=== PATIENT | female | born 1975 | race Two or more races ===

== ENCOUNTER 2025-05-26 12:02 | Inpatient (IN) | payer MEDICAID ==
[~2025-05-26] VITALS: Ht 167.6 cm; Wt 90.0 kg
--- NOTE | 2025-05-26 12:50 | ED.PDOC ---
History of Present Illness HPI Comments 50-year-old female who is Green[place]ic-speaking presents to the ER with daughter who translates and a prior medical history of diabetes, hypertension, thyroid disease, PE x2021, high lipids, DVT on the left leg: Surgical history of C- section, Achilles surgery and the chief complaint of chest pain. Problem caleb harper reports that she went to his doctor makes us too weak for a lab work due from her having constant chest pain and they called today telling her to go to the ER due from having her troponin elevated. Patient states she had substernal chest pain, which radiated of the upper back to the neck burp, breathing worsens the pain all happening for the past 3 days. Patient notes on having a little bit of pain right now. Denies chills, fever, N/V/D. No other associated symptoms, modifiers, recent injuries or sick contacts present at this time. Chief Complaint: Chest Pain Time Seen by MD: 12:30 Reviewed Notes: Nurses Notes, Medications, Allergies Allergies: Coded Allergies: NO KNOWN ALLERGIES (Unverified , 05/26/25) Information Source: Patient Severity: Moderate Timing: Days Duration: Since onset, Days Prehospital treatment: None Past Medical History PAST MEDICAL HISTORY: DM, High Lipids, HTN, PE (2020), Thyroid Past Medical History (Other): DVT on the left leg Surgical History: Surgical History (Other): Achilles surgery INTELLIGENCE APPLICATIONS History: No Pertinent INTELLIGENCE APPLICATIONS History Family History Family History: Reviewed,noncontributory to illness, Unknown Social History Smoker: Non-Smoker Alcohol: Denies ETOH Use Drugs: Denies Drug Use Lives In: Home Constitutional: denies: chills, diaphoresis, fatigue, fever, malaise, sweats, weakness, others EENTM: denies: blurred vision, double vision, ear bleeding, ear discharge, ear drainage, ear pain, ear ringing, eye pain, eye redness, hearing loss, mouth pain, mouth swelling, nasal discharge, nose bleeding, nose congestion, nose pain, photophobia, tearing, throat pain, throat swelling, voice changes, others Respiratory: reports: shortness of breath; denies: cough, hemoptysis, orthopnea, SOB at rest, SOB with excertion, stridor, wheezing, others Cardiovascular: reports: chest pain; denies: dizzy spells, diaphoresis, Dyspnea on exertion, edema, irregular heart beat, left arm pain, lightheadedness, palpitations, PND, syncope, others Gastrointestinal: denies: abdomen distended, abdominal pain, blood streaked bowels, constipated, diarrhea, dysphagia, difficulty swallowing, hematemesis, melena, nausea, poor appetite, poor fluid intake, rectal bleeding, rectal pain, vomiting, others Genitourinary: denies: abnormal vagina bleeding, burning, dyspareunia, dysuria, flank pain, frequency, hematuria, incontinence, pain, , vagina discharge, urgency, others Neurological: denies: dizziness, fainting, headache, left sided numbness, left sided weakness, numbness, paresthesia, pre-existing deficit, right sided numbness, right sided weakness, seizure, speech problems, tingling, tremors, weakness, others Musculoskeletal: reports: back pain; denies: gout, joint pain, joint swelling, muscle pain, muscle stiffness, neck pain, others Integumetry: denies: bruises, change in color, change in hair/nails, dryness, laceration, lesions, lumps, rash, wounds, others Allergic/Immunocompromised: denies: Difficulty Healing, Frequent Infections, Hives, Itching, others Hematologic/Lymphatic: denies: anemia, blood clots, easy bleeding, easy bruising, swollen glands, others Endocrine: denies: excessive hunger, excessive sweating, excessive thirst, excessive urination, flushing, intolerance to cold, intolerance to heat, unexplained weight gain, unexplained weight loss, others Psychiatric: denies: anxiety, bipolar disorder, depression, hopeless, panic disorder, schizophrenia, sleepless, suicidal, others All Other Systems: Reviewed and Negative Physical Exam Exam Comments No pitting edema, calf nontender General Appearance: No Apparent Distress, Normal HEENT: Normal ENT Inspection, Pharynx Normal, TMs Normal Neck: Full Range of Motion, Non-Tender, Normal, Normal Inspection Respiratory: Chest Non-Tender, Lungs Clear, No Accessory Muscle Use, No Respiratory Distress, Normal Breath Sounds Cardiovascular: No Edema, No JVD, No Murmur, No Gallop, Normal Peripheral Pulses, Regular Rate/Rhythm Breast Exam: Deferred Gastrointestinal: No Organomegaly, Non Tender, No Pulsatile Mass, Normal Bowel Sounds, Soft Genitalia: Deferred Pelvic: Deferred Rectal: Deferred Extremities: No calf tenderness, Normal capillary refill, Normal inspection, Normal range of motion, Non-tender, No pedal edema Musculoskeletal : Apperance: Normal Neurologic: Alert, division field inspector II-XII nml as Tested, No Motor Deficits, Normal Affect, Normal Mood, No Sensory Deficits Cerebellar Function: Normal Reflexes: Normal Skin: Dry, Normal Color, Warm Lymphatic: No Adenopathy Was a procedure done? Was a procedure done?: No EKG EKG : Pulse Rate (adult): 81 Basco: Normal Cardiac Rhythm: NSR Block: None Hypertrophy: None ST: Normal Differential Dx Considerations may include: acs, pe, ptx, pneumonia, lung mass, GERD, aortic dissection X-Ray, Labs, Meds, VS Vital Signs Date Time Temp Pulse Resp B/P (MAP) Pulse Ox O2 Delivery O2 Flow Rate FiO2 05/26/25 13:25 78 05/26/25 12:50 81 05/26/25 12:49 81 05/26/25 12:49 98.4 81 16 116/65 (82) 98 98.4 05/26/25 12:13 81 05/26/25 12:06 98.3 81 16 133/57 (82) 98 98.3 Lab Test 05/26/25 13:20 05/26/25 12:28 05/26/25 12:17 Range/Units Troponin I High Sensitivity 3 L < 3 L </=34 ng/L White Blood Count 6.5 4.4-10.8 10^3/uL Red Blood Count 3.82 L 4.0-5.20 10^6/uL Hemoglobin 11.2 L 12.2-16.2 g/dL Hematocrit 33.4 L 36.0-46.0 % Mean Corpuscular Volume 87.6 80.0-100.0 fL Mean Corpuscular Hemoglobin 29.3 28.0-32.0 pg Mean Corpuscular Hemoglobin Concent 33.4 32.0-36.0 g/dL Red Cell Distribution Width 13.6 11.8-14.3 % Platelet Count 208 140-450 10^3/uL Mean Platelet Volume 9.6 6.9-10.8 fL Neutrophils (%) (Auto) 54.1 37.0-80.0 % Lymphocytes (%) (Auto) 38.4 10.0-50.0 % Monocytes (%) (Auto) 4.3 0.0-12.0 % Eosinophils (%) (Auto) 2.8 0.0-7.0 % Basophils (%) (Auto) 0.4 0.0-2.0 % Neutrophils # (Auto) 3.5 1.6-8.6 10 ^3/uL Lymphocytes # (Auto) 2.5 0.4-5.4 10 ^3/uL Monocytes # (Auto) 0.3 0-1.3 10 ^3/uL Eosinophils # (Auto) 0.2 0-0.8 10 ^3/uL Basophils # (Auto) 0 0-0.2 10 ^3/uL Nucleated Red Blood Cells 0.1 % D-Dimer, Quantitative 0.36 0.0-0.49 mg/L FEU Sodium Level 141 136-145 mmol/L Potassium Level 5.7 *H 3.5-5.1 mmol/L Chloride Level 110 H 98-107 mmol/L Carbon Dioxide Level 26 20-31 mmol/L Anion Gap 5 5-15 Blood Urea Nitrogen 28 H 9-23 mg/dL Creatinine 1.17 H 0.550-1.02 mg/dL Glomerular Filtration Rate Calc 57 >90 mL/min BUN/Creatinine Ratio 23.9 H 10.0-20.0 Serum Glucose 128 H 74-106 mg/dL Calcium Level 9.7 8.7-10.4 mg/dL POC Glucose 124 H 70-106 mg/dl Current Medications Medications (Trade) Dose Ordered Sig/Chau Route Start Time Stop Time Status Last Admin Aspirin 162 mg ONCE ONCE PO 05/26/25 12:30 05/26/25 12:31 DC 05/26/25 13:11 Time of 1ST Reevaluation: 13:00 Reevaluation 1ST: Unchanged Patient Education/Counseling: Diagnosis, Treatment, Prognosis Family Education/Counseling: Diagnosis, Treatment, Prognosis SEPSIS Sepsis Screen Physician Orders Chest Portable (05/26/25 12:21) Electrocardigram (05/26/25 12:21) Electrocardigram (05/26/25 13:21) Electrocardigram (05/26/25 15:21) Sodium Zirconium Cyclosilicate (Lokelma) (05/26/25 15:45) Vital Signs Date Time Temp Pulse Resp B/P (MAP) Pulse Ox O2 Delivery O2 Flow Rate FiO2 05/26/25 13:25 78 05/26/25 12:50 81 05/26/25 12:49 81 05/26/25 12:49 98.4 81 16 116/65 (82) 98 98.4 05/26/25 12:13 81 05/26/25 12:06 98.3 81 16 133/57 (82) 98 98.3 Laboratory Tests Test 05/26/25 12:28 White Blood Count 6.5 10^3/uL (4.4-10.8) Medications Medications Dose Ordered Sig/Chau Route Start Time Stop Time Status Last Admin Dose Admin Aspirin 162 mg ONCE ONCE PO 05/26/25 12:30 05/26/25 12:31 DC 05/26/25 13:11 Departure 1 Departure Time of Disposition: 15:39 Impression: Primary Impression: Unstable angina Disposition: ADMITTED INPATIENT Admit to: Tele Condition: Serious Discharged With: Self Critical Care Note Critical Care Time?: Yes (45 min-critical care time only) Critical care comment: Due to concerns for patients condition deteriorating, the care required my highest level of attention and readiness to intervene. I assessed the patient, reviewed the medical records, ordered the appropriate tests and treatments, then reassessed for results and responsiveness. I communicated with medical personnel and consultants and formulated a plan of care. Total critical care time excludes any procedures Stability Stability form required: No Heart Score Heart Score: Heart Score Response (Comments) Value History Highly Suspicious 2 EKG Repolarization Disturb 1 Age 45-64 1 Risk Factors >3 or Hx ASHD 2 Troponin Normal limit 0 Total 6 I personally scribed for JU LINDSEY MD ([email or web address]) on 05/26/25 at 12:50. Electronically submitted by Navdeep Mac ([email or web address]). JU LINDSEY MD May 26, 2025 12:50
[2025-05-26 12:54] LABS: Hematocrit 33.4 % (36.0-46.0); Hemoglobin 11.2 g/dL (12.2-16.2); Mean Corpuscular Hemoglobin 29.3 pg (28.0-32.0); Mean Corpuscular Volume 87.6 fL (80.0-100.0); Nucleated Red Blood Cells % 0.1 %
[2025-05-26 13:00] LABS: Sodium 141 mmol/L (136-145)
[2025-05-26 13:01] LABS: Anion Gap 5 (5-15); Calcium 9.7 mg/dL (8.7-10.4); Carbon Dioxide 26 mmol/L (20-31)
[2025-05-26 13:06] LABS: BUN/Creatinine Ratio 23.9 (10.0-20.0)
[2025-05-26 13:11] LABS: Blood Urea Nitrogen 28 mg/dL (9-23); Chloride 110 mmol/L (98-107); Glucose 128 mg/dL (74-106)
--- NOTE | 2025-05-26 13:12 | DVH ---
CHEST RADIOGRAPH Indication: cp Technique: XY CHEST PORTABLE Comparison: None FINDINGS: The cardiac silhouette is unremarkable. The lungs demonstrate no pulmonary airspace consolidation. Th e pulmonary vasculature is prominent. There is no pleural effusion.. There is no pneumothorax. IMPRESSION: Pulmonary vasculature congestion.
[2025-05-26 13:13] LABS: Potassium 5.7 mmol/L (3.5-5.1)
[2025-05-26 16:01] VITALS: PULSE 87; RESP 16; O2SAT 100
[2025-05-26] MEDS: SODIUM ZIRCONIUM CYCL 10 GM PAK PO ONE (16:24)
--- NOTE | 2025-05-26 18:35 | ECG ---
[facility] Test Date: 2025-05-26 Test Time: 13:25:43 Pat Name: TOMY DRAKE Department: er Room: [address] [place] [address] Gender: F Unit Manager: scott : 1975 Requested By: JU LINDSEY Order Number: [id number] Reading MD: Chandler Olivares Measurements Intervals [place] Rate: 78 P: 14 [place]: 144 QRS: 39 QRSD: 99 T: 62 QT: 369 QTc: 421 Interpretive Statements Sinus rhythm Baseline wander in lead(s) V6 Electronically Signed On 05-26-2025 19:38:10 PDT by Chandler Olivares Please click the below link to view image of tracing.
--- NOTE | 2025-05-26 18:35 | ECG ---
[facility] Test Date: 2025-05-26 Test Time: 12:13:01 Pat Name: TOMY DRAKE Department: er Room: [address] [place] [address] Gender: F Records And Information Manager: jahaira : 1975 Requested By: JU LINDSEY Order Number: [id number] Reading MD: Chandler Olivares Measurements Intervals [place] Rate: 81 P: 6 [place]: 147 QRS: 23 QRSD: 99 T: 66 QT: 365 QTc: 424 Interpretive Statements Sinus rhythm Electronically Signed On 05-26-2025 19:37:29 PDT by Chandler Olivares Please click the below link to view image of tracing.
[2025-05-26] MEDS ORDERED: NITROGLYCERIN 0.4 MG SL TAB SL PRN (18:45)
[2025-05-26] MEDS ORDERED: MORPHINE SULFATE INJ 2 MG/ml SYRG IV PRN (18:45)
[2025-05-26] MEDS ORDERED: ONDANSETRON HCL 4 MG/2 ML VIAL IV PRN (18:45)
[2025-05-26] MEDS ORDERED: DEXTROSE (50%) 50ML SYRG IV PRN (18:45)
[2025-05-26] MEDS ORDERED: TEMAZEPAM 15 MG CAP PO PRN (18:45)
[2025-05-26 20:37] VITALS: BP 154/75; PULSE 86; RESP 15; O2SAT 99
[2025-05-26] MEDS: ACCU-CHEK COMFORT CURVE STRIP VI SCH (22:07)
[2025-05-26] MEDS: InsuLIN REG 1unit/0.01ml Soln (100units/ml) SC SCH (22:11)
[2025-05-26] MEDS: ATORVASTATIN 20 MG TAB PO SCH (22:16)
[2025-05-26 22:37] VITALS: BP 154/75; PULSE 86; RESP 16; TEMP 97.6; O2SAT 99
[2025-05-27] VITALS (8 sets, daily range): BP systolic 118–157; BP diastolic 58–90; PULSE 74–83; RESP 16–20; TEMP 97.6–98.7; O2SAT 97–100
--- NOTE | 2025-05-27 04:09 | DVHHP2 ---
History of Present Illness Reason for Visit: Chest pain History of Present Illness 50-year-old female presents for evaluation of chest pain. Patient presents with complaints of a three day history of substernal sharp chest pain that radiates to her back with associated shortness for breath. She was also notified by her primary care provider to present due to her potassium level being elevated. Denies palpitations. No GI or symptoms. Past Medical History Hypertension, PE, thyroid, dyslipidemia, diabetes mellitus, DVT Past Surgical History Family History Noncontributory Smoke: No ALCOHOL: none Drugs: None Lives: with Family Review of Systems Review of Systems Review of systems are currently negative otherwise addressed in HPI. Allergies: Coded Allergies: NO KNOWN ALLERGIES (Unverified , 05/26/25) Medications Current Medications Medications Dose Ordered Sig/Chau Route Start Time Stop Time Status Last Admin Dose Admin Lisinopril 40 mg DAILY PO 05/27/25 10:00 Aspirin 81 mg DAILY PO 05/27/25 10:00 Empaglifozin 25 mg DAILY PO 05/27/25 10:00 Atorvastatin Calcium 40 mg HS PO 05/26/25 22:00 05/26/25 22:16 40 MG Levothyroxine Sodium 88 mcg QAM@0600 PO 05/27/25 06:00 Gabapentin 300 mg DAILY PO 05/27/25 10:00 Diagnostic Test (Pha) 1 strip ACHS 05/26/25 22:00 05/26/25 22:07 1 STRIP Insulin Human Regular ACHS SC 05/26/25 22:00 05/26/25 22:11 2 UNITS Dextrose 50 ml UD PRN IV 05/26/25 18:45 Temazepam 15 mg QHSP PRN PO 05/26/25 18:45 Ondansetron HCl 4 mg Q4HP PRN IV 05/26/25 18:45 Acetaminophen 650 mg Q6HP PRN PO 05/26/25 18:45 Nitroglycerin 0.4 mg Q5MINP PRN SL 05/26/25 18:45 Morphine Sulfate 2 mg Q30M PRN IV 05/26/25 18:45 Exam Vital Signs Vital Signs Date Time Temp Pulse Resp B/P (MAP) Pulse Ox O2 Delivery O2 Flow Rate FiO2 05/27/25 00:00 Room Air* 0 21 05/27/25 00:00 97.6 79 20 127/58 (81) 98 97.6 Exam Gen: 50-year-old female in mild distress Skin: Warm, dry, normal color and texture, no rash. HEENT: Normocephalic atraumatic, mucous membranes moist and pink. Neck: Cervical and supraclavicular nodes normal without enlargement, trachea is midline, thyroid gland is normal without masses. Pulmonary: Clear to auscultation and percussion bilaterally. Cardiac: Regular rate and rhythm. No murmur Abdomen: Soft, nontender, nondistended, bowel sounds present all 4 quadrants, no guarding, no rigidity, no organomegaly. Extremities: No cyanosis, clubbing, no edema Neuro: Cranial nerves II through XII grossly intact, normal affect and speech, no focal motor deficits. Labs/Xrays ORDERING PHYSICIAN: JU LINDSEY MD PROCEDURE(s): CXRP - CHEST PORTABLE REASON: cp ORDER NUMBER(s): [id number], ACCESSION NUMBER(s): [id number] CHEST RADIOGRAPH Indication: cp Technique: XY CHEST PORTABLE Comparison: None FINDINGS: The cardiac silhouette is unremarkable. The lungs demonstrate no pulmonary airspace consolidation. The pulmonary vasculature is prominent. There is no pleural effusion.. There is no pneumothorax. IMPRESSION: Pulmonary vasculature congestion. Labs Test 05/26/25 22:06 05/26/25 13:20 05/26/25 12:28 Range/Units POC Glucose 144 H 70-106 mg/dl Troponin I High Sensitivity 3 L </=34 ng/L White Blood Count 6.5 4.4-10.8 10^3/uL Red Blood Count 3.82 L 4.0-5.20 10^6/uL Hemoglobin 11.2 L 12.2-16.2 g/dL Hematocrit 33.4 L 36.0-46.0 % Mean Corpuscular Volume 87.6 80.0-100.0 fL Mean Corpuscular Hemoglobin 29.3 28.0-32.0 pg Mean Corpuscular Hemoglobin Concent 33.4 32.0-36.0 g/dL Red Cell Distribution Width 13.6 11.8-14.3 % Platelet Count 208 140-450 10^3/uL Mean Platelet Volume 9.6 6.9-10.8 fL Neutrophils (%) (Auto) 54.1 37.0-80.0 % Lymphocytes (%) (Auto) 38.4 10.0-50.0 % Monocytes (%) (Auto) 4.3 0.0-12.0 % Eosinophils (%) (Auto) 2.8 0.0-7.0 % Basophils (%) (Auto) 0.4 0.0-2.0 % Neutrophils # (Auto) 3.5 1.6-8.6 10 ^3/uL Lymphocytes # (Auto) 2.5 0.4-5.4 10 ^3/uL Monocytes # (Auto) 0.3 0-1.3 10 ^3/uL Eosinophils # (Auto) 0.2 0-0.8 10 ^3/uL Basophils # (Auto) 0 0-0.2 10 ^3/uL Nucleated Red Blood Cells 0.1 % D-Dimer, Quantitative 0.36 0.0-0.49 mg/L FEU Sodium Level 141 136-145 mmol/L Potassium Level 5.7 *H 3.5-5.1 mmol/L Chloride Level 110 H 98-107 mmol/L Carbon Dioxide Level 26 20-31 mmol/L Anion Gap 5 5-15 Blood Urea Nitrogen 28 H 9-23 mg/dL Creatinine 1.17 H 0.550-1.02 mg/dL Glomerular Filtration Rate Calc 57 >90 mL/min BUN/Creatinine Ratio 23.9 H 10.0-20.0 Serum Glucose 128 H 74-106 mg/dL Calcium Level 9.7 8.7-10.4 mg/dL SEPSIS Sepsis Screen Date sepsis recognized/suspect: May 26, 2025 Time Sepsis recognized/suspect: 1902 Recent Procedure: No On Antibiotic Therapy: No Respiratory Rate >20: No Heart Rate >90: No Temp<36 C (96.8 F) or >38.3 C: No SBP <90 or MAP <65 mmHG: No New Acute Mental Status Change: No Is the patient on CPAP, BIPAP,: No Vital Signs Date Time Temp Pulse Resp B/P (MAP) Pulse Ox O2 Delivery O2 Flow Rate FiO2 05/27/25 00:00 Room Air* 0 21 05/27/25 00:00 97.6 79 20 127/58 (81) 98 97.6 05/26/25 22:37 97.6 86 16 154/75 (101) 99 97.6 05/26/25 20:37 86 15 154/75 (101) 99 Medications Medications Dose Ordered Sig/Chau Route Start Time Stop Time Status Last Admin Dose Admin Atorvastatin Calcium 40 mg HS PO 05/26/25 22:00 05/26/25 22:16 40 MG Diagnostic Test (Pha) 1 strip ACHS 05/26/25 22:00 05/26/25 22:07 1 STRIP Insulin Human Regular ACHS SC 05/26/25 22:00 05/26/25 22:11 2 UNITS Assessment/Plan Assessment/Plan Assessment Unstable angina Chronic kidney disease Hyperkalemia Diabetes mellitus Plan Admit the patient to telemetry to the hospitalist Resume home medications ACS protocol Continue treatment per orders. Plan discussed with: Patient My Orders Orders - ROMY CUETO Procedure Category Date Status Time Lisinopril Tablet PHA 05/27/25 In Process (Zestril Tablet) 10:00 Aspirin Tablet PHA 05/27/25 In Process 10:00 Empagliflozin PHA 05/27/25 In Process (Jardiance) 10:00 Atorvastatin (Lipitor) PHA 05/26/25 In Process 22:00 Levothyroxine Tablet PHA 05/27/25 In Process (Synthroid Tablet) 06:00 Gabapentin Capsule PHA 05/27/25 In Process (Neurontin Capsule) 10:00 Basic Metabolic Panel LAB 05/27/25 Logged 04:00 Glucose Blood PHA 05/26/25 In Process (Accu-Chek Comfort 22:00 Insulin R (Human) PHA 05/26/25 In Process (Insulin R) 22:00 Dextrose 50% Syringe PHA 05/26/25 In Process 18:45 Admit ADMIT 05/26/25 Transmitted 18:38 Temazepam (Restoril) PHA 05/26/25 In Process 18:45 Ondansetron Hcl PHA 05/26/25 In Process (Zofran) 18:45 Cardiac DIET 05/27/25 Transmitted Diet-2gna,Lofat,Lochol Breakfast Echo 2d Mode Cardiac US 05/26/25 Logged DOP 18:38 Condition: Fair MELANY 05/26/25 In Process 18:38 Acetaminophen Tablet PHA 05/26/25 In Process (Tylenol Tablet) 18:45 Bedrest With Bathroom MELANY 05/26/25 In Process Privileg 18:38 Nitroglycerin PHA 05/26/25 In Process Sublingual (Ntrostat 18:45 Morphine Sulfate PHA 05/26/25 In Process Injection 18:45 Stat Ekg For Chest [facility] 05/26/25 In Process Pain 18:38 Notify Of Changes [facility] 05/26/25 In Process From Base 18:38 Weather Forecaster For [facility] 05/26/25 In Process 24 Hours 18:38 Emergency Dysrhythmia [facility] 05/26/25 In Process Protocol 18:38 Rhythm Strips Once [facility] 05/26/25 In Process Every Shift 18:38 Oxygen By Nasal RT 05/26/25 Transmitted Cannula 18:38 Basic Metabolic Panel LAB 05/28/25 Verified 05:00 Date of Service: May 26, 2025 Billing Provider: Yahaira Ceron Common Visit Codes: [id number] INP/OBS CARE (HIGH) ROMY CUETO [facility] May 27, 2025 04:09
[2025-05-27] MEDS: LEVOTHYROXINE SODIUM 88 MCG TAB PO SCH (05:25)
[2025-05-27] MEDS: ACETAMINOPHEN 325 MG TAB PO PRN (05:30)
[2025-05-27 07:10] LABS: Potassium 4.4 mmol/L (3.5-5.1); Sodium 141 mmol/L (136-145)
[2025-05-27 07:11] LABS: Anion Gap 8 (5-15); Calcium 10.1 mg/dL (8.7-10.4); Carbon Dioxide 22 mmol/L (20-31)
[2025-05-27 07:16] LABS: BUN/Creatinine Ratio 28.6 (10.0-20.0); Blood Urea Nitrogen 20 mg/dL (9-23)
[2025-05-27 07:17] LABS: Chloride 111 mmol/L (98-107); Glucose 72 mg/dL (74-106)
[2025-05-27] MEDS: GABAPENTIN 300 MG CAP PO SCH (09:36)
[2025-05-27] MEDS: EMPAGLIFLOZIN 10 MG TAB PO SCH (09:37)
[2025-05-27] MEDS: LISINOPRIL 20 MG TAB PO SCH (09:38)
--- NOTE | 2025-05-27 18:25 | DVHPN2 ---
Subjective chest pain improved Reviewed: H&P, Labs Changes from previous H/P or p: No Changes Objective Vitals Vital Signs Date Time Temp Pulse Resp B/P (MAP) Pulse Ox O2 Delivery O2 Flow Rate FiO2 05/27/25 16:33 98.6 76 18 152/82 (105) 97 98.6 05/27/25 08:00 Room Air* 0 21 Intake/Output Intake and Output 05/27/25 07:00 Intake Total 100 ml Balance 100 ml Intake Oral 100 ml General Appearance: Alert, Oriented X3, Cooperative HEENT: Atraumatic Lungs: Clear to auscultation Cardiovascular: Regular rate, Normal S1, Normal S2 Abdomen: Normal bowel sounds Medications Current Medications Medications Dose Ordered Sig/Chau Route Start Time Stop Time Status Last Admin Dose Admin Lisinopril 40 mg DAILY PO 05/27/25 10:00 05/27/25 09:38 40 MG Aspirin 81 mg DAILY PO 05/27/25 10:00 05/27/25 09:37 81 MG Empaglifozin 25 mg DAILY PO 05/27/25 10:00 05/27/25 09:37 25 MG Atorvastatin Calcium 40 mg HS PO 05/26/25 22:00 05/26/25 22:16 40 MG Levothyroxine Sodium 88 mcg QAM@0600 PO 05/27/25 06:00 05/27/25 05:25 88 MCG Gabapentin 300 mg DAILY PO 05/27/25 10:00 05/27/25 09:36 300 MG Diagnostic Test (Pha) 1 strip ACHS 05/26/25 22:00 05/27/25 18:23 1 STRIP Insulin Human Regular ACHS SC 05/26/25 22:00 05/26/25 22:11 2 UNITS Dextrose 50 ml UD PRN IV 05/26/25 18:45 Temazepam 15 mg QHSP PRN PO 05/26/25 18:45 Ondansetron HCl 4 mg Q4HP PRN IV 05/26/25 18:45 Acetaminophen 650 mg Q6HP PRN PO 05/26/25 18:45 05/27/25 05:30 650 MG Nitroglycerin 0.4 mg Q5MINP PRN SL 05/26/25 18:45 Morphine Sulfate 2 mg Q30M PRN IV 05/26/25 18:45 Laboratory Results Laboratory Tests 7/14/25 12:28 05/27/25 06:35 Chemistry Test 05/27/25 06:35 Calcium Level 10.1 mg/dL (8.7-10.4) Assessment/Plan Assessment/Plan Unstable angina Chronic kidney disease Hyperkalemia Diabetes mellitus Echo ordered Troponins x 2 negative Aspirin statin Plan discussed with: Patient Date of Service: May 27, 2025 Billing Provider: ARMIDA GOODSON MD Common Visit Codes: [id number] INP/OBS CARE(HIGH) ARMIDA GOODSON MD May 27, 2025 18:25
[2025-05-28 00:48] VITALS: BP 117/73; PULSE 72; RESP 20; TEMP 98.1; O2SAT 98
--- NOTE | 2025-05-28 01:03 | DVHSR ---
APPROVED REPORT EXAM: Two-dimensional and M-mode echocardiogram with Doppler and color Doppler. Blood Pressure: 142/90 mmHg INDICATION Chest Pain RISK FACTORS Height: 66, Weight: 203 DIMENSIONS LVDd4.1 (3.8-5.7cm)LA (2D)4.7 (1.9-4.0cm)Aortic Root3.7 (2.0-3.7cm) LVDs2.8 (2.5-4.0cm)LA (MM) (1.9-4.0cm)Aortic Cusp Exc2.0 (1.5-2.0cm) EF (%) 61.0 (55-70%)Rt. Atrium3.4 (1.9-4.0cm)Asc. Aorta cm IVSd1.3 (0.7-1.1cm)RV (D) (1.8-2.4cm) PWd1.2 (0.7-1.1cm) Mitral Valve MitralMitral Stenosis E wave0.87m/sMV Mean GR.mmHg A wave0.92m/sMV Peak GR.91mmHg E/A ratio0.92D MVAcm2 DECEL [id number] 1/2 [id number] IVRTmsDop MVA3.39cm2 Aortic Valve Aortic ValveAortic Stenosis V10.87m/Joe Mean GR.3mmHg V21.24m/Joe Peak GR.6mmHg LVOT Diameter2.2 (1.8-2.4cm)Doppler AVA2.67cm2 AI P 1/2 Ghwc262.86ms Pulmonic Valve V21.30m/s Conclusion LV EF IS 65% AND IS NORMAL MODERATE DEGREE AORTIC REGURGITATION MODERATE DEGREE PROLAPSE OD ANTERIOR LEAFLET OF MV NORMAL RV FUNCTION AND SIZE NO EFFUSION
[2025-05-28 05:00] VITALS: BP 107/68; PULSE 69; RESP 20; TEMP 97.6; O2SAT 98
[2025-05-28 06:21] LABS: Chloride 106 mmol/L (98-107); Potassium 4.7 mmol/L (3.5-5.1); Sodium 139 mmol/L (136-145)
[2025-05-28 06:22] LABS: Anion Gap 9 (5-15); Calcium 10.2 mg/dL (8.7-10.4); Carbon Dioxide 24 mmol/L (20-31)
[2025-05-28 06:27] LABS: BUN/Creatinine Ratio 27.4 (10.0-20.0)
[2025-05-28 06:29] LABS: Blood Urea Nitrogen 26 mg/dL (9-23); Glucose 128 mg/dL (74-106)
[2025-05-28 07:30] VITALS: PULSE 78
[2025-05-28 08:50] VITALS: BP 98/61; PULSE 72; RESP 16; TEMP 98.2; O2SAT 99
[2025-05-28 12:37] VITALS: BP 119/75; PULSE 73; RESP 18; TEMP 98.7; O2SAT 98
[2025-05-28 13:20] VITALS: BP 109/64; TEMP 37.1
== END 2025-05-28 15:17 | disposition home or self-care (01) | DRG 198 ==
LOC: ER 12:02 → OVERFLOW 18:38 → TELE-WESTW 23:47
PROVIDERS: ADMIT Hospitalist; ATTEND Hospitalist
DX: I20.0 Unstable angina (principal); E11.22 Type 2 diabetes mellitus with diabetic chronic kidney disease; N18.9 Chronic kidney disease, unspecified; E87.5 Hyperkalemia; I12.9 Hypertensive chronic kidney disease with stage 1 through stage 4 chronic kidney disease, or unspecified chronic kidney disease; E78.5 Hyperlipidemia, unspecified; Z98.891 History of uterine scar from previous surgery; Z86.711 Personal history of pulmonary embolism; Z86.718 Personal history of other venous thrombosis and embolism; Z79.899 Other long term (current) drug therapy
CPT/HCPCS: 36415; 71045; 80048; 82962; 84484; 85025; 85379; 93005; 93306; 99291; G0378; J1815